=== PATIENT | female | born 1990 | race Caucasian/White ===

== ENCOUNTER 2018-03-23 19:12 | Inpatient (IN) | payer OTHER ==
[2018-03-23] MEDS ORDERED: ACETAMINOPHEN 325 MG TAB PO (19:30)
[2018-03-23] MEDS ORDERED: NITROGLYCERIN (SL) 0.4 MG TAB SL (19:30)
[2018-03-23] MEDS ORDERED: MAGNESIUM HYDROXIDE 30ML CUP PO (19:30)
[2018-03-23] MEDS ORDERED: DOCUSATE SODIUM 100 MG CAP PO (19:30)
[2018-03-23] MEDS ORDERED: ALBUTEROL/IPRATROPIUM (NEB) 3 ML AMP HHN (19:30)
[2018-03-23] MEDS ORDERED: METOCLOPRAMIDE 10 MG INJ IV (19:30)
[2018-03-23] MEDS ORDERED: NA PHOSPHATE/BIPHOS 133 ML ENEMA PR (19:30)
[2018-03-23] MEDS: HYDROCODONE/APAP (5/325) TAB PO (20:10)
[2018-03-23] MEDS: SOD CHLORIDE 0.45% 1,000 ML IV (20:10)
[2018-03-23] MEDS: hydrALAzine 20 MG INJ IV (20:17)
[2018-03-23] MEDS ORDERED: HEPARIN 5,000 UNIT/0.5 ML VIAL (20:25)
[2018-03-23] MEDS: HEPARIN SODIUM 5,000 UNIT/ML VIAL SC (20:43)
[2018-03-23] MEDS: LORAZEPAM 2 MG INJ IV (20:44)
[2018-03-23 21:30] LABS: FREE T4 (FREE THYROXINE) 1.77 ng/dl (0.79-2.35)
[2018-03-23] MEDS ORDERED: DEXTROSE 50% 50 ML SYRINGE IV ×2 (21:30)
[2018-03-23] MEDS ORDERED: GLUCAGON 1 MG INJ IM (21:30)
[2018-03-23] MEDS ORDERED: GLUCOSE GEL 15 GRAM TUBE BUCCAL (21:30)
[2018-03-23] MEDS ORDERED: GLUCOSE GEL 15 GRAM TUBE PO ×2 (21:30)
[2018-03-23] MEDS: DEXTROSE 5%-0.45% NACL 1,000 ML IV (21:34)
[2018-03-23] MEDS: NACL 0.9% 3 ML SYG IV (22:33)
[2018-03-24] MEDS: INSULIN ASPART [NOVOLOG] 3 ML PEN SC ×4 (00:35→18:00)
[2018-03-24] MEDS: HYDROCODONE/APAP (5/325) TAB PO ×2 (01:43→07:58)
[2018-03-24] MEDS: hydrALAzine 20 MG INJ IV (01:43)
[2018-03-24] MEDS: LORAZEPAM 2 MG INJ IV ×3 (03:38→19:23)
[2018-03-24 05:53] LABS: ADD MAN DIFF? NO
[2018-03-24 06:10] LABS: BASOPHIL # 0.1 10^3/ul (0.0-0.1); BASOPHILS % 0.8 % (0.0-2.0); EOSINOPHILS # 0.2 10^3/ul (0.0-0.5); EOSINOPHILS % 1.6 % (0.0-7.0); HEMATOCRIT 39.5 % (37.0-47.0); HEMOGLOBIN 12.6 g/dl (12.0-16.0); LYMPHOCYTES % 19.8 % (15.0-51.0); MEAN CORPUSCULAR HEMOGLOBIN 30.1 pg (29.0-33.0); MEAN CORPUSCULAR HGB CONC 31.9 g/dl (32.0-37.0); MEAN CORPUSCULAR VOLUME 94.3 fl (82.0-101.0); MEAN PLATELET VOLUME 9.3 fl (7.4-10.4); MONOCYTE # 1.2 10^3/ul (0.3-0.9); MONOCYTES % 12.1 % (0.0-11.0); NEUTROPHIL # 6.6 10^3/ul (1.6-7.5); NEUTROPHILS % 64.4 % (39.0-77.0); PLATELET COUNT 222 10^3/UL (140-415); RED BLOOD COUNT 4.19 10^6/ul (4.20-5.40); RED CELL DISTRIBUTION WIDTH 13.2 % (11.5-14.5)
[2018-03-24 06:10] LABS: WHITE BLOOD COUNT 10.2 10^3/ul (4.8-10.8)
[2018-03-24 06:39] LABS: ANION GAP 15 (5-13); BLOOD UREA NITROGEN 18 mg/dl (7-20); CALCIUM 8.8 mg/dl (8.4-10.2); CARBON DIOXIDE 20 mmol/L (21-31); CHLORIDE 103 mmol/L (97-110); CHOL/HDL RATIO 3.7 RATIO; CHOLESTEROL 153 mg/dl (100-200); CREATININE 2.77 mg/dl (0.44-1.00); Estimated GFR 20 mL/min (>60); GLUCOSE 203 mg/dl (70-220); HDL CHOLESTEROL 41 mg/dl (34-82); LDL CHOLESTEROL,CALCULATED 85 mg/dl; MAGNESIUM 1.9 mg/dl (1.7-2.5); PHOSPHORUS 4.1 mg/dl (2.5-4.9); POTASSIUM 3.4 mmol/L (3.5-5.1); SODIUM 138 mmol/L (135-144); TRIGLYCERIDES 136 mg/dl (0-149)
[2018-03-24 07:02] LABS: THYROID STIMULATING HORMONE 0.125 MIU/L (0.465-4.680)
[2018-03-24] MEDS ORDERED: HEPARIN 5,000 UNIT/0.5 ML VIAL ×2 (07:40→20:26)
[2018-03-24] MEDS: HEPARIN SODIUM 5,000 UNIT/ML VIAL SC ×2 (08:00→20:43)
[2018-03-24 09:50] LABS: HEMOGLOBIN A1C 6.9 % (0-5.9)
[2018-03-24] MEDS: ERYTHROMYCIN BASE (EC) 250 MG TAB PO ×3 (10:19→21:00)
[2018-03-24] MEDS: DEXTROSE 5%-0.45% NACL 1,000 ML IV ×2 (10:19→12:50)
[2018-03-24] MEDS ORDERED: HYDROmorphONE 0.5 MG/0.5 ML SYG IV (11:00)
[2018-03-24] MEDS: KETOROLAC 30 MG INJ IV ×2 (11:39→18:54)
[2018-03-24] MEDS: FAMOTIDINE 20 MG INJ IV (12:42)
[2018-03-24] MEDS: HYDROmorphONE 0.5 MG/0.5 ML SYG IV ×3 (12:53→20:57)
[2018-03-24] MEDS: ONDANSETRON 4 MG INJ IV (14:38)
[2018-03-24] MEDS ORDERED: GLUCOSE GEL 15 GRAM TUBE PO (16:30)
[2018-03-24] MEDS ORDERED: GLUCAGON 1 MG INJ IM (16:30)
[2018-03-24] MEDS ORDERED: GLUCOSE GEL 15 GRAM TUBE BUCCAL (16:30)
[2018-03-24] MEDS ORDERED: BISACODYL (EC) 5 MG TAB PO (16:30)
[2018-03-24] MEDS ORDERED: BISACODYL 10 MG SUPP PR (16:30)
[2018-03-24] MEDS ORDERED: DEXTROSE 50% 50 ML SYRINGE IV ×2 (16:30)
[2018-03-24] MEDS: DRONABINOL 2.5 MG CAP PO (20:41)
[2018-03-24] MEDS: LEVETIRACETAM 500 MG TAB PO (20:42)
[2018-03-24] MEDS: traZODone 50 MG TAB PO (20:42)
[2018-03-24] MEDS: INSULIN GLARGINE [LANTus] (100 UNITS/ML) SYG SC (20:46)
[2018-03-24] MEDS: DOXAZOSIN 1 MG TAB PO (20:56)
[2018-03-25] MEDS: KETOROLAC 30 MG INJ IV ×5 (00:29→22:01)
[2018-03-25] MEDS: INSULIN ASPART [NOVOLOG] 3 ML PEN SC ×5 (00:34→20:28)
[2018-03-25] MEDS: HYDROmorphONE 0.5 MG/0.5 ML SYG IV ×5 (01:30→20:28)
[2018-03-25] MEDS: LORAZEPAM 2 MG INJ IV ×2 (03:51→23:32)
[2018-03-25] MEDS: ERYTHROMYCIN BASE (EC) 250 MG TAB PO ×3 (05:36→22:01)
[2018-03-25] MEDS: DEXTROSE 5%-0.45% NACL 1,000 ML IV (05:36)
[2018-03-25 05:42] LABS: ADD MAN DIFF? NO; HAAIG REFLEX REFLEX FILED
[2018-03-25 05:48] LABS: BASOPHIL # 0.1 10^3/ul (0.0-0.1); BASOPHILS % 0.7 % (0.0-2.0); EOSINOPHILS # 0.3 10^3/ul (0.0-0.5); EOSINOPHILS % 3.1 % (0.0-7.0); HEMOGLOBIN 12.6 g/dl (12.0-16.0); LYMPHOCYTES # 2.4 10^3/ul (0.8-2.9); LYMPHOCYTES % 24.6 % (15.0-51.0); MEAN CORPUSCULAR HEMOGLOBIN 30.3 pg (29.0-33.0); MEAN CORPUSCULAR HGB CONC 33.2 g/dl (32.0-37.0); MEAN CORPUSCULAR VOLUME 91.3 fl (82.0-101.0); MEAN PLATELET VOLUME 9.2 fl (7.4-10.4); MONOCYTE # 1.2 10^3/ul (0.3-0.9); MONOCYTES % 12.2 % (0.0-11.0); NEUTROPHIL # 5.6 10^3/ul (1.6-7.5); NEUTROPHILS % 58.2 % (39.0-77.0); PLATELET COUNT 215 10^3/UL (140-415); RED BLOOD COUNT 4.16 10^6/ul (4.20-5.40); RED CELL DISTRIBUTION WIDTH 13.1 % (11.5-14.5)
[2018-03-25 05:48] LABS: WHITE BLOOD COUNT 9.7 10^3/ul (4.8-10.8)
[2018-03-25 06:04] LABS: LIPASE 28 U/L (23-300)
[2018-03-25 06:07] LABS: INR 1.01; PROTIME 13.4 Sec (11.9-14.9)
[2018-03-25 06:10] LABS: LACTIC ACID 0.6 mmol/L (0.5-2.0)
[2018-03-25 06:21] LABS: ALANINE AMINOTRANSFERASE 14 IU/L (13-69); ALBUMIN 2.7 g/dl (3.3-4.9); ALBUMIN/GLOBULIN RATIO 0.93; ALKALINE PHOSPHATASE 98 IU/L (42-121); ANION GAP 11 (5-13); ASPARTATE AMINO TRANSFERASE 18 IU/L (15-46); BLOOD UREA NITROGEN 16 mg/dl (7-20); CALCIUM 8.7 mg/dl (8.4-10.2); CARBON DIOXIDE 22 mmol/L (21-31); CHLORIDE 105 mmol/L (97-110); CREATININE 2.73 mg/dl (0.44-1.00); Estimated GFR 20 mL/min (>60); GLUCOSE 64 mg/dl (70-220); MAGNESIUM 1.9 mg/dl (1.7-2.5); SODIUM 138 mmol/L (135-144); TOTAL PROTEIN 5.6 g/dl (6.1-8.1)
[2018-03-25 06:27] LABS: FREE T4 (FREE THYROXINE) 1.29 ng/dl (0.79-2.35)
[2018-03-25 06:38] LABS: HEPATITIS B SURFACE ANTIGEN NEGATIVE (NEGATIVE); TRIIODOTHYRONINE 0.55 ng/ml (0.97-1.69)
[2018-03-25 06:55] LABS: HEPATITIS B CORE ANTIBODY NEGATIVE (NEGATIVE); HEPATITIS C VIRAL ANTIBODY NEGATIVE (NEGATIVE)
[2018-03-25] MEDS ORDERED: HEPARIN 5,000 UNIT/0.5 ML VIAL (08:36)
[2018-03-25] MEDS: FAMOTIDINE 20 MG INJ IV (08:41)
[2018-03-25] MEDS: DRONABINOL 2.5 MG CAP PO ×2 (08:42→20:18)
[2018-03-25] MEDS: AMLODIPINE 10 MG TAB PO ×2 (08:42→15:20)
[2018-03-25] MEDS: GABAPENTIN 100 MG CAP PO (08:42)
[2018-03-25] MEDS: LEVETIRACETAM 500 MG TAB PO ×2 (08:42→20:17)
[2018-03-25] MEDS: VENLAFAXINE (XR) 75 MG CAP PO (08:42)
[2018-03-25] MEDS: HEPARIN SODIUM 5,000 UNIT/ML VIAL SC ×2 (08:43→20:19)
[2018-03-25 10:07] LABS: MAGNESIUM 1.9 mg/dl (1.7-2.5)
[2018-03-25] MEDS ORDERED: POTASSIUM CHLORIDE 100 ML IVPB (11:00)
[2018-03-25] MEDS: HEPARIN 1000 UNITS/ML 10 ML INJ CATHETER (11:05)
[2018-03-25] MEDS: POTASSIUM CHLORIDE (SR) 20 MEQ TAB PO (11:48)
[2018-03-25] MEDS: traZODone 50 MG TAB PO (20:16)
[2018-03-25] MEDS: SENNA/DOCUSATE NA (8.6MG/50MG) TAB PO (20:17)
[2018-03-25] MEDS: DOXAZOSIN 1 MG TAB PO (20:17)
[2018-03-25] MEDS: INSULIN GLARGINE [LANTus] (100 UNITS/ML) SYG SC (20:24)
[2018-03-26] MEDS: HYDROmorphONE 0.5 MG/0.5 ML SYG IV ×2 (05:05→08:45)
[2018-03-26] MEDS: ERYTHROMYCIN BASE (EC) 250 MG TAB PO ×3 (05:39→22:32)
[2018-03-26] MEDS: LEVOTHYROXINE 100 MCG TAB PO (05:39)
[2018-03-26] MEDS: KETOROLAC 30 MG INJ IV ×4 (05:40→22:32)
[2018-03-26 06:59] LABS: ADD MAN DIFF? NO
[2018-03-26] MEDS: INSULIN ASPART [NOVOLOG] 3 ML PEN SC ×4 (07:00→20:58)
[2018-03-26 07:03] LABS: BASOPHIL # 0.1 10^3/ul (0.0-0.1); BASOPHILS % 0.6 % (0.0-2.0); EOSINOPHILS # 0.5 10^3/ul (0.0-0.5); EOSINOPHILS % 6.4 % (0.0-7.0); HEMATOCRIT 42.2 % (37.0-47.0); HEMOGLOBIN 13.5 g/dl (12.0-16.0); LYMPHOCYTES % 24.3 % (15.0-51.0); MEAN CORPUSCULAR HEMOGLOBIN 29.7 pg (29.0-33.0); MEAN CORPUSCULAR VOLUME 92.7 fl (82.0-101.0); MEAN PLATELET VOLUME 9.4 fl (7.4-10.4); MONOCYTE # 1.1 10^3/ul (0.3-0.9); MONOCYTES % 13.3 % (0.0-11.0); NEUTROPHIL # 4.4 10^3/ul (1.6-7.5); NEUTROPHILS % 54.4 % (39.0-77.0); PLATELET COUNT 235 10^3/UL (140-415); RED BLOOD COUNT 4.55 10^6/ul (4.20-5.40); RED CELL DISTRIBUTION WIDTH 13.1 % (11.5-14.5)
[2018-03-26 07:22] LABS: PHOSPHORUS 3.1 mg/dl (2.5-4.9)
[2018-03-26 07:22] LABS: ANION GAP 9 (5-13); BLOOD UREA NITROGEN 14 mg/dl (7-20); CALCIUM 8.8 mg/dl (8.4-10.2); CARBON DIOXIDE 29 mmol/L (21-31); CHLORIDE 101 mmol/L (97-110); CREATININE 2.07 mg/dl (0.44-1.00); Estimated GFR 28 mL/min (>60); GLUCOSE 62 mg/dl (70-220); POTASSIUM 4.8 mmol/L (3.5-5.1); SODIUM 139 mmol/L (135-144)
[2018-03-26] MEDS: GLUCOSE GEL 15 GRAM TUBE PO (08:09)
[2018-03-26] MEDS: HEPARIN SODIUM 5,000 UNIT/ML VIAL SC ×2 (08:33→20:32)
[2018-03-26] MEDS: VENLAFAXINE (XR) 75 MG CAP PO (08:44)
[2018-03-26] MEDS: LEVETIRACETAM 500 MG TAB PO ×2 (08:44→20:31)
[2018-03-26] MEDS: AMLODIPINE 10 MG TAB PO (08:44)
[2018-03-26] MEDS: FAMOTIDINE 20 MG INJ IV (08:45)
[2018-03-26] MEDS: GABAPENTIN 100 MG CAP PO (08:46)
[2018-03-26] MEDS: DRONABINOL 2.5 MG CAP PO ×2 (09:00→20:30)
[2018-03-26] MEDS: LORAZEPAM 2 MG INJ IV ×2 (10:54→20:52)
[2018-03-26] MEDS: HYDROmorphONE 2 MG TAB PO (15:52)
[2018-03-26] MEDS: SENNA/DOCUSATE NA (8.6MG/50MG) TAB PO (20:31)
[2018-03-26] MEDS: DOXAZOSIN 1 MG TAB PO (20:31)
[2018-03-26] MEDS: traZODone 50 MG TAB PO (20:31)
[2018-03-26] MEDS: INSULIN GLARGINE [LANTus] (100 UNITS/ML) SYG SC (20:38)
[2018-03-27] MEDS: LEVOTHYROXINE 100 MCG TAB PO (04:46)
[2018-03-27] MEDS: ERYTHROMYCIN BASE (EC) 250 MG TAB PO ×3 (04:46→21:39)
[2018-03-27] MEDS: KETOROLAC 30 MG INJ IV (04:49)
[2018-03-27] MEDS: LORAZEPAM 2 MG INJ IV ×2 (04:49→15:27)
[2018-03-27 05:21] LABS: ADD MAN DIFF? NO
[2018-03-27 05:24] LABS: WHITE BLOOD COUNT 10.3 10^3/ul (4.8-10.8)
[2018-03-27 05:24] LABS: BASOPHIL # 0.1 10^3/ul (0.0-0.1); BASOPHILS % 0.7 % (0.0-2.0); EOSINOPHILS # 0.6 10^3/ul (0.0-0.5); EOSINOPHILS % 5.9 % (0.0-7.0); LYMPHOCYTES % 29.3 % (15.0-51.0); MEAN CORPUSCULAR HEMOGLOBIN 29.8 pg (29.0-33.0); MEAN CORPUSCULAR HGB CONC 32.6 g/dl (32.0-37.0); MEAN CORPUSCULAR VOLUME 91.3 fl (82.0-101.0); MEAN PLATELET VOLUME 9.7 fl (7.4-10.4); MONOCYTE # 1.1 10^3/ul (0.3-0.9); NEUTROPHIL # 5.4 10^3/ul (1.6-7.5); NEUTROPHILS % 52.3 % (39.0-77.0); PLATELET COUNT 285 10^3/UL (140-415); RED BLOOD COUNT 5.04 10^6/ul (4.20-5.40); RED CELL DISTRIBUTION WIDTH 12.8 % (11.5-14.5)
[2018-03-27 05:44] LABS: ANION GAP 10 (5-13); BLOOD UREA NITROGEN 23 mg/dl (7-20); CALCIUM 9.2 mg/dl (8.4-10.2); CARBON DIOXIDE 28 mmol/L (21-31); CHLORIDE 96 mmol/L (97-110); CREATININE 2.45 mg/dl (0.44-1.00); Estimated GFR 23 mL/min (>60); GLUCOSE 162 mg/dl (70-220); POTASSIUM 5.3 mmol/L (3.5-5.1); SODIUM 134 mmol/L (135-144)
[2018-03-27 05:45] LABS: MAGNESIUM 2.1 mg/dl (1.7-2.5)
[2018-03-27] MEDS: VENLAFAXINE (XR) 75 MG CAP PO (08:06)
[2018-03-27] MEDS: HYDROmorphONE 2 MG TAB PO (08:06)
[2018-03-27] MEDS: GABAPENTIN 100 MG CAP PO (08:06)
[2018-03-27] MEDS: LEVETIRACETAM 500 MG TAB PO ×2 (08:06→20:17)
[2018-03-27] MEDS: DRONABINOL 2.5 MG CAP PO ×2 (08:07→21:39)
[2018-03-27] MEDS: FAMOTIDINE 20 MG TAB PO (08:07)
[2018-03-27] MEDS: INSULIN ASPART [NOVOLOG] 3 ML PEN SC ×4 (08:29→20:25)
[2018-03-27] MEDS: HEPARIN SODIUM 5,000 UNIT/ML VIAL SC ×2 (09:00→21:00)
[2018-03-27] MEDS: HEPARIN 1000 UNITS/ML 10 ML INJ CATHETER (11:17)
[2018-03-27] MEDS: morphine LIQ (20 MG/ML PO SYG) PO ×2 (12:12→20:18)
[2018-03-27] MEDS: AMLODIPINE 10 MG TAB PO (12:12)
[2018-03-27] MEDS ORDERED: HEPARIN 5,000 UNIT/0.5 ML VIAL (20:06)
[2018-03-27] MEDS: SENNA/DOCUSATE NA (8.6MG/50MG) TAB PO (20:17)
[2018-03-27] MEDS: traZODone 50 MG TAB PO (20:17)
[2018-03-27] MEDS: DOXAZOSIN 1 MG TAB PO (20:17)
[2018-03-27] MEDS: INSULIN GLARGINE [LANTus] (100 UNITS/ML) SYG SC (20:24)
[2018-03-28] MEDS: LORAZEPAM 2 MG INJ IV ×2 (00:06→08:27)
[2018-03-28] MEDS: morphine LIQ (20 MG/ML PO SYG) PO ×2 (03:48→12:48)
[2018-03-28 06:21] LABS: ADD MAN DIFF? NO
[2018-03-28] MEDS: ERYTHROMYCIN BASE (EC) 250 MG TAB PO (06:22)
[2018-03-28] MEDS: LEVOTHYROXINE 100 MCG TAB PO (06:22)
[2018-03-28 06:29] LABS: WHITE BLOOD COUNT 12.3 10^3/ul (4.8-10.8)
[2018-03-28 06:29] LABS: BASOPHIL # 0.1 10^3/ul (0.0-0.1); BASOPHILS % 0.4 % (0.0-2.0); EOSINOPHILS # 0.4 10^3/ul (0.0-0.5); EOSINOPHILS % 3.3 % (0.0-7.0); HEMATOCRIT 42.6 % (37.0-47.0); HEMOGLOBIN 13.8 g/dl (12.0-16.0); MEAN CORPUSCULAR HGB CONC 32.4 g/dl (32.0-37.0); MEAN CORPUSCULAR VOLUME 92.6 fl (82.0-101.0); MONOCYTE # 1.1 10^3/ul (0.3-0.9); NEUTROPHIL # 8.7 10^3/ul (1.6-7.5); NEUTROPHILS % 70.7 % (39.0-77.0); PLATELET COUNT 293 10^3/UL (140-415); RED CELL DISTRIBUTION WIDTH 13.1 % (11.5-14.5)
[2018-03-28 06:53] LABS: ANION GAP 8 (5-13); BLOOD UREA NITROGEN 16 mg/dl (7-20); CARBON DIOXIDE 33 mmol/L (21-31); CHLORIDE 96 mmol/L (97-110); CREATININE 2.46 mg/dl (0.44-1.00); Estimated GFR 23 mL/min (>60); GLUCOSE 133 mg/dl (70-220); POTASSIUM 5.1 mmol/L (3.5-5.1); SODIUM 137 mmol/L (135-144)
[2018-03-28 07:40] LABS: PHOSPHORUS 3.9 mg/dl (2.5-4.9)
[2018-03-28] MEDS ORDERED: HEPARIN 5,000 UNIT/0.5 ML VIAL (07:56)
[2018-03-28] MEDS: INSULIN ASPART [NOVOLOG] 3 ML PEN SC ×2 (08:00→12:00)
[2018-03-28] MEDS: DRONABINOL 2.5 MG CAP PO (08:08)
[2018-03-28] MEDS: AMLODIPINE 10 MG TAB PO (08:09)
[2018-03-28] MEDS: FAMOTIDINE 20 MG TAB PO (08:09)
[2018-03-28] MEDS: LEVETIRACETAM 500 MG TAB PO (08:10)
[2018-03-28] MEDS: HEPARIN SODIUM 5,000 UNIT/ML VIAL SC (08:10)
[2018-03-28] MEDS: GABAPENTIN 100 MG CAP PO (08:10)
[2018-03-28] MEDS: VENLAFAXINE (XR) 75 MG CAP PO (08:10)
== END 2018-03-28 14:00 | disposition home or self-care (01) | DRG 73 ==
LOC: 2NE 19:12
PROVIDERS: Hospitalist
PROC: 5A1D70Z Performance of Urinary Filtration, Intermittent, Less than 6 Hours Per Day (ICD-10-PCS; principal; 2018-03-25)
DX: E10.43 Type 1 diabetes mellitus with diabetic autonomic (poly)neuropathy (principal); N18.6 End stage renal disease; E44.0 Moderate protein-calorie malnutrition; Z68.1 Body mass index [BMI] 19.9 or less, adult; F11.20 Opioid dependence, uncomplicated; I12.0 Hypertensive chronic kidney disease with stage 5 chronic kidney disease or end stage renal disease; K31.84 Gastroparesis; E03.9 Hypothyroidism, unspecified; G40.909 Epilepsy, unspecified, not intractable, without status epilepticus; F32.9 Major depressive disorder, single episode, unspecified; E10.22 Type 1 diabetes mellitus with diabetic chronic kidney disease; F41.9 Anxiety disorder, unspecified; D63.1 Anemia in chronic kidney disease; G89.4 Chronic pain syndrome; Z99.2 Dependence on renal dialysis
CPT/HCPCS: 74018; 80048; 80053; 80061; 82962; 83036; 83605; 83690; 83735; 84100; 84439; 84443; 84480; 84703; 85025; 85610; 86704; 86709; 86803; 87340; 90935